=== PATIENT | male | born 1970 | race Two or more races ===

== ENCOUNTER 2019-06-18 15:18 | Inpatient (IN) | payer MEDICAID, OTHER ==
[~2019-06-18] VITALS: Ht 157.5 cm; Wt 77.1 kg
[2019-06-18] MEDS ORDERED: IBUP-2070 PO (15:22)
[2019-06-18] MEDS ORDERED: IBUPROFEN 600 MG TABLET PO ONE (18:15)
[2019-06-18] MEDS ORDERED: MethylPREDNISolone SOD SUCC 125 MG/2 ML VIAL IVP ONE (18:45)
[2019-06-18] MEDS ORDERED: ACETAMINOPHEN 1000 MG/ISO-OSM 100 ML IV ONE (18:45)
[2019-06-18] MEDS ORDERED: SODIUM CHLORIDE 0.9% 1,000 ML IV ONE ×3 (18:45→21:15)
[2019-06-18 19:02] LABS: BASOPHILS % (AUTO) 0.9 % (0.0-2.0); EOSINOPHILS % (AUTO) 0 % (1.0-6.0); HEMATOCRIT 32.6 % (41-53); LYMPHOCYTES # (AUTO) 1.6 K/uL (1.0-4.8); LYMPHOCYTES % (AUTO) 6.7 % (22.0-44.0); MEAN CORPUSCULAR HEMOGLOBIN 23.1 pg (26.0-34.0); MEAN CORPUSCULAR HGB CONC 30.7 G/dL (31.0-37.0); MEAN CORPUSCULAR VOLUME 75 fL (80-100); MONOCYTES # (AUTO) 1.6 K/uL (0.1-1.0); MONOCYTES % (AUTO) 6.8 % (2.0-9.0); NEUTROPHILS # (AUTO) 20.8 K/uL (1.8-7.7); PLATELET COUNT (AUTO) 350 K/uL (150-450); RED BLOOD CELL COUNT(AUTO) 4.33 MIL/uL (4.50-5.90); RED CELL DISTRIBUTION WIDTH 16.6 % (11.5-14.5)
[2019-06-18 19:10] LABS: NEUTROPHILS % (AUTO) 85.6 % (40.0-70.0)
[2019-06-18 19:16] LABS: CALCIUM, TOTAL 8.6 mg/dL (8.8-10.5); CREATININE 1.87 mg/dL (0.60-1.30); POTASSIUM 3.7 mmol/L (3.5-5.1)
[2019-06-18 19:22] LABS: ALBUMIN 3.3 g/dL (3.4-5.0); BILIRUBIN,TOTAL 0.7 mg/dL (0.1-1.0); TOTAL PROTEIN, SERUM 7.5 g/dL (6.4-8.2)
[2019-06-18 20:53] LABS: LACTIC ACID 3.2 mmol/L (0.4-2.0)
[2019-06-18] MEDS ORDERED: ACETAMINOPHEN 325 MG TABLET PO PRN (21:15)
[2019-06-18] MEDS ORDERED: ONDANSETRON HCL 4 MG/2 ML VIAL IVP PRN (21:15)
[2019-06-18] MEDS ORDERED: PIPERACILLIN/TAZO 3.375 GM/D5W 50 ML IV ONE (21:15)
[2019-06-18] MEDS ORDERED: HYDROCODONE/ACETAMINOPHEN 5-325 MG TABLET PO PRN (21:15)
[2019-06-18] MEDS: MORPHINE SULFATE 4 MG/ML SYRINGE IVP PRN (21:50)
[2019-06-18 22:42] LABS: INFLUENZA TYPE A NEGATIVE FOR TYPE A (NEGATIVE); INFLUENZA TYPE B NEGATIVE FOR TYPE B (NEGATIVE)
[2019-06-18 23:57] VITALS: BP 107/61
[2019-06-19] MEDS ORDERED: INFLUENZA VIRUS VACCINE QVS 2019-20 (3YR+)/PF 60 MCG/0.5 ML SYRINGE IM ONE (01:15)
[2019-06-19] MEDS: MORPHINE SULFATE 4 MG/ML SYRINGE IVP PRN (04:23)
[2019-06-19 05:33] VITALS: BP 122/75
[2019-06-19 07:02] VITALS: BP 118/58
[2019-06-19 10:44] LABS: APPEARANCE,URINE CLEAR (CLEAR); BILIRUBIN,URINE NEGATIVE (NEGATIVE); GLUCOSE, URINE (UA) NEGATIVE (NEGATIVE); KETONES,URINE NEGATIVE (NEGATIVE); LEUKOCYTE ESTERASE ,URINE NEGATIVE (NEGATIVE); NITRATE,URINE NEGATIVE (NEGATIVE); OCCULT BLOOD,URINE NEGATIVE (NEGATIVE); PROTEIN,URINE NEGATIVE (NEGATIVE); UROBILINOGEN,URINE 0.2 mg/dL (<=1.0)
[2019-06-19 10:57] LABS: BACTERIA,URINE None Seen /HPF (None Seen); RBC,URINE None Seen /HPF (0-2); SQUAMOUS EPITHELIAL CELL,UR Few /LPF (None Seen); WBC,URINE 0-2 /HPF (0-5)
[2019-06-19 10:58] VITALS: BP 120/62
[2019-06-19] MEDS ORDERED: BISACODYL 10 MG RECTAL RECTAL SUPPOSITORY PR PRN (13:45)
[2019-06-19] MEDS ORDERED: MORPHINE SULFATE 2 MG/ML SYRINGE IVP PRN (13:45)
[2019-06-19] MEDS ORDERED: ACETAMINOPHEN 325 MG TABLET PO PRN (13:45)
[2019-06-19] MEDS ORDERED: ONDANSETRON HCL 4 MG/2 ML VIAL IVP PRN (13:45)
[2019-06-19] MEDS ORDERED: NAPROXEN 500 MG TABLET PO ONE (13:45)
[2019-06-19] MEDS ORDERED: ALBUTEROL SULFATE 2.5 MG/0.5 ML NEB SOLUTION NEB PRN (13:45)
[2019-06-19] MEDS ORDERED: ZOLPIDEM TARTRATE 5 MG TABLET PO PRN (13:45)
[2019-06-19] MEDS ORDERED: MAGNESIUM HYDROXIDE SUSPENSION 30 ML UDCUP PO PRN (13:45)
[2019-06-19] MEDS ORDERED: PredniSONE 20 MG TABLET PO ONE (13:45)
[2019-06-19] MEDS ORDERED: IPRATROPIUM BROMIDE 0.5 MG/2.5 ML NEB SOLUTION NEB PRN (13:45)
[2019-06-19 13:51] LABS: C-REACTIVE PROTEIN QUANT 13.8 mg/dL (0.00-0.30)
[2019-06-19 14:02] LABS: URIC ACID 3.5 mg/dL (2.6-7.2)
[2019-06-19 15:00] VITALS: BP 114/71
[2019-06-19] MEDS: HEPARIN SODIUM,PORCINE 5,000 UNITS/ML VIAL SQ SCH ×2 (15:24→23:46)
[2019-06-19] MEDS: HYDROCODONE/ACETAMINOPHEN 5-325 MG TABLET PO PRN ×2 (15:25→21:09)
[2019-06-19 20:39] VITALS: BP 142/84
[2019-06-19] MEDS: DOCUSATE SODIUM 100 MG CAPSULE PO SCH ×2 (21:00→21:12)
[2019-06-19] MEDS: NAPROXEN 500 MG TABLET PO SCH (21:06)
[2019-06-19 23:38] VITALS: BP 144/66
[2019-06-20 04:35] VITALS: BP 119/73
[2019-06-20 07:10] VITALS: BP 111/78
[2019-06-20] MEDS: HYDROCODONE/ACETAMINOPHEN 5-325 MG TABLET PO PRN (07:49)
[2019-06-20] MEDS: HEPARIN SODIUM,PORCINE 5,000 UNITS/ML VIAL SQ SCH (07:56)
[2019-06-20] MEDS: NAPROXEN 500 MG TABLET PO SCH (09:00)
[2019-06-20] MEDS: DOCUSATE SODIUM 100 MG CAPSULE PO SCH (09:00)
[2019-06-20 10:13] LABS: BASOPHILS % (AUTO) 0.4 % (0.0-2.0); EOSINOPHILS % (AUTO) 0.8 % (1.0-6.0); HEMATOCRIT 31.3 % (41-53); HEMOGLOBIN 9.8 g/dL (13.5-17.5); LYMPHOCYTES # (AUTO) 1.9 K/uL (1.0-4.8); LYMPHOCYTES % (AUTO) 14.3 % (22.0-44.0); MEAN CORPUSCULAR HEMOGLOBIN 23.4 pg (26.0-34.0); MEAN CORPUSCULAR HGB CONC 31.5 G/dL (31.0-37.0); MEAN CORPUSCULAR VOLUME 74 fL (80-100); MONOCYTES # (AUTO) 0.8 K/uL (0.1-1.0); MONOCYTES % (AUTO) 6.2 % (2.0-9.0); NEUTROPHILS # (AUTO) 10.5 K/uL (1.8-7.7); NEUTROPHILS % (AUTO) 78.3 % (40.0-70.0); PLATELET COUNT (AUTO) 329 K/uL (150-450); RED CELL DISTRIBUTION WIDTH 16.5 % (11.5-14.5)
[2019-06-20 10:25] LABS: ANION GAP 9 mmol/L (8-16); CALCIUM, TOTAL 8.9 mg/dL (8.8-10.5); CARBON DIOXIDE 26 mmol/L (22-29); CHLORIDE 105 mmol/L (98-107); CREATININE 0.95 mg/dL (0.60-1.30); GLOMERULAR FILTR. RATE CALC > 60 mL/min (>60); GLUCOSE,RANDOM 166 mg/dL (70-110); POTASSIUM 3.8 mmol/L (3.5-5.1); SODIUM SERUM 140 mmol/L (136-145); UREA NITROGEN, BLOOD 16 mg/dL (7-18)
[2019-06-20 11:10] VITALS: BP 128/78
[2019-06-20] MEDS ORDERED: PredniSONE 20 MG TABLET PO ONE (12:15)
[2019-06-20] MEDS ORDERED: HYDR-4061 PO (12:51)
[2019-06-20] MEDS ORDERED: PRED5 PO ×5 (12:55→13:03)
== END 2019-06-20 14:25 | disposition home or self-care (01) | DRG 546 ==
LOC: EMS 15:19 → 5S 21:00
PROVIDERS: ADMIT Hospitalist; ATTEND Hospitalist
DX: M35.3 Polymyalgia rheumatica (principal); N17.9 Acute kidney failure, unspecified; E87.2 Acidosis; M06.9 Rheumatoid arthritis, unspecified; M19.90 Unspecified osteoarthritis, unspecified site; D72.829 Elevated white blood cell count, unspecified
CPT/HCPCS: 74176; 76705; 83605; 84550; 85651; 86140; 86430; 86431; 87040; 87804; 90686; G0378; J0131; J1644; J2270; J2543; J7030

== ENCOUNTER 2019-07-21 16:30 | Emergency (ER) | payer MEDICAID, OTHER ==
[~2019-07-21] VITALS: Ht 165.1 cm; Wt 65.9 kg
[~2019-07-21 16:30] MED LIST: HYDR-4061 PO; IBUP-2070 PO; PRED5 PO
[2019-07-21 16:52] LABS: GLUCOSE,POINT OF CARE 198 MG/DL (70-110)
[2019-07-21] MEDS ORDERED: DEXAMETHASONE 4 MG TABLET PO ONE (18:15)
[2019-07-21] MEDS ORDERED: KETOROLAC TROMETHAMINE 30 MG/ML VIAL IM ONE (18:15)
[2019-07-21 19:52] VITALS: BP 148/98
== END 2019-07-21 19:56 | disposition home or self-care (01) ==
LOC: EMS 16:31
DX: M54.5 Low back pain (principal)
CPT/HCPCS: 82962; 96372; 99283; J1885; J8540